=== PATIENT | male | born 1955 | race Caucasian/White ===

== ENCOUNTER → 2016-11-11 | Outpatient (CLI) | payer BC ==
[~2016-11-11] MED LIST: AMBIEN 10MG10 MG PO; AMOXICILLIN 8751 TAB PO; ASPIR-LOW81 MG PO; ASPIR-LOX325 MG PO; ASPIRIN 32325 MG/TAB PO; CARDI-OMEGA1000 MG PO; CIPRO 500MG TA500 MG PO; CRESTOR5 MG PO; DOXYCYCLINE 10100 MG PO; EFFIENT10 MG PO; FISH OIL CONC1000 MG PO; FLAGYL500 MG PO; IMDUR 30MG30 MG/TAB PO; LANTUS100 U/ML SC; LANTUS100 U/ML SQ; LEVAQUIN 750MG750 M1 PO; LOMOTIL 0.025 M1 TAB PO; METOPROLOL SR25 MG PO; NO HOME MEDICATIONS; NORCO 325 MG-51 TAB PO; NOVOLIN R100 U/ML SC; NOVOLOG 100U100 U/M1 SQ; PLAVIX 75MG TAB75 MG PO; PRIL40 PO; PRINIVIL10 MG PO; PROTONIX40 MG PO; SIMVASTATIN20 MG PO; TOPROL XL 25MG25 MG PO; ZITHROMAX 250M250 MG PO; [UNRECOGNIZED DRUG - REMARK]
== END ==
LOC: COL.RAD 11-03 10:30
DX: D44.0 Neoplasm of uncertain behavior of thyroid gland (principal); L97.529 Non-pressure chronic ulcer of other part of left foot with unspecified severity

== ENCOUNTER → 2016-11-11 | Outpatient (CLI) | payer BC | LOC: ZCOL.LAB 16:16 | DX: L97.529 Non-pressure chronic ulcer of other part of left foot with unspecified severity (principal) ==

== ENCOUNTER 2017-06-10 14:57 | Outpatient (RCR) | payer BC | END 2017-07-29 15:03 | disposition home or self-care (01) | LOC: COL.CR 14:57 | DX: Z48.812 Encounter for surgical aftercare following surgery on the circulatory system (principal); Z95.5 Presence of coronary angioplasty implant and graft; I25.10 Atherosclerotic heart disease of native coronary artery without angina pectoris ==

== ENCOUNTER 2017-12-19 18:46 | Emergency (ER) | payer BC ==
[2017-12-19 18:52] VITALS: BP 144/76; TEMP 98.3
[2017-12-19 19:15] LABS: BASO % 0.4 % (0.0-2.0); EOS # 0.1 (0.0-0.7); EOS % 2.1 % (0-4.0); GRAN # 2.8 (1.4-6.5); GRAN % 53.9 % (42.2-75.2); HEMATOCRIT 40.6 % (42.0-52.0); HEMOGLOBIN 13.5 g/dl (13.5-18.0); LYMPH # 1.9 (1.2-3.4); LYMPH % 35.8 % (20.0-51.0); MEAN CELL VOLUME 88 fl (80.0-100.0); MEAN CORPUSCULAR HEMOGLOBIN 29 pg (27.0-31.0); MEAN CORPUSCULAR HGB CONC 33 g/dl (33.0-37.0); MEAN PLATELET VOLUME 8.5 fl (7.4-10.4); MONO # 0.4 (0.1-0.6); MONO % 7.2 % (1.7-9.3); PLATELET COUNT 123 K/mm3 (130-400); RED BLOOD COUNT 4.64 M/mm3 (4.20-5.60); REDCELL DISTRIBUTION WIDTH-CV 12.7 % (11.5-14.5)
[2017-12-19 19:27] LABS: C-REACTIVE PROTEIN 1.6 mg/dL (0.0-0.9); CALCIUM 8.8 mg/dL (8.4-10.2); CREATININE, serum 0.99 mg/dL (0.66-1.25); POTASSIUM 4.3 mmol/L (3.4-5.0)
[2017-12-19 19:36] LABS: ERYTHROCYTE SEDIMENTATION RATE 13 mm/hr (0-30)
[2017-12-19] MEDS ORDERED: DOXYCYCLINE 10100 MG PO (20:01)
[2017-12-19 20:10] VITALS: PULSE 72
== END 2017-12-19 20:10 | disposition home or self-care (01) ==
LOC: COL.ER 18:46
PROVIDERS: Emergency Medicine
DX: E11.621 Type 2 diabetes mellitus with foot ulcer (principal); L97.529 Non-pressure chronic ulcer of other part of left foot with unspecified severity; E11.40 Type 2 diabetes mellitus with diabetic neuropathy, unspecified; F17.210 Nicotine dependence, cigarettes, uncomplicated; Z79.82 Long term (current) use of aspirin; Z79.4 Long term (current) use of insulin; Z98.890 Other specified postprocedural states; Z95.5 Presence of coronary angioplasty implant and graft; Z95.1 Presence of aortocoronary bypass graft

== ENCOUNTER → 2018-04-17 | Outpatient (CLI) | payer BC | LOC: ZCOL.LAB 12:40 | DX: E11.621 Type 2 diabetes mellitus with foot ulcer (principal); L97.529 Non-pressure chronic ulcer of other part of left foot with unspecified severity ==

== ENCOUNTER → 2018-06-07 | Outpatient (CLI) | payer BC | LOC: COL.RAD 09:21 | DX: D49.7 Neoplasm of unspecified behavior of endocrine glands and other parts of nervous system (principal); E04.2 Nontoxic multinodular goiter ==

== ENCOUNTER 2018-06-19 12:01 | Emergency (ER) | payer BC ==
[~2018-06-19] VITALS: Ht 185.4 cm; Wt 108.8 kg
[~2018-06-19 12:01] MED LIST changes: -ASPIRIN 32325 MG/TAB PO; +ASPIRIN 81M81 MG/TA2 PO
[2018-06-19 12:05] VITALS: BP 131/66; TEMP 98.2
[2018-06-19] MEDS ORDERED: CIPRO 500MG TA500 MG PO (12:54)
[2018-06-19] MEDS ORDERED: LASIX 20MG TABL20 MG PO (12:58)
[2018-06-19 13:14] LABS: BASO % 0.3 % (0.0-2.0); EOS # 0.1 (0.0-0.7); EOS % 2.1 % (0-4.0); GRAN # 3.5 (1.4-6.5); GRAN % 60.6 % (42.2-75.2); HEMATOCRIT 38.4 % (42.0-52.0); HEMOGLOBIN 12.5 g/dl (13.5-18.0); LYMPH # 1.7 (1.2-3.4); LYMPH % 29.5 % (20.0-51.0); MEAN CELL VOLUME 88 fl (80.0-100.0); MEAN CORPUSCULAR HEMOGLOBIN 29 pg (27.0-31.0); MEAN CORPUSCULAR HGB CONC 33 g/dl (33.0-37.0); MEAN PLATELET VOLUME 8.2 fl (7.4-10.4); MONO # 0.4 (0.1-0.6); MONO % 6.6 % (1.7-9.3); PLATELET COUNT 150 K/mm3 (130-400); RED BLOOD COUNT 4.39 M/mm3 (4.20-5.60); REDCELL DISTRIBUTION WIDTH-CV 13.2 % (11.5-14.5)
[2018-06-19 13:18] LABS: INR 1.2 (0.8-3.0)
[2018-06-19 13:20] LABS: PARTIAL THROMBOPLASTIN TIME 33.5 SECONDS (26.0-37.0)
[2018-06-19 13:30] LABS: ALBUMIN 3.7 gm/dL (3.5-5.0); BILIRUBIN,TOTAL 0.5 mg/dL (0.0-1.0); C-REACTIVE PROTEIN 4.3 mg/dL (0.0-0.9); CALCIUM 8.8 mg/dL (8.4-10.2); CREATININE, serum 0.88 mg/dL (0.66-1.25); POTASSIUM 4.7 mmol/L (3.4-5.0); TOTAL PROTEIN 8.1 gm/dL (6.4-8.2)
[2018-06-19 14:20] VITALS: PULSE 80
== END 2018-06-19 14:20 | disposition home or self-care (01) ==
LOC: COL.ER 12:01
PROVIDERS: Physician Assistant
DX: R23.3 Spontaneous ecchymoses (principal); I25.10 Atherosclerotic heart disease of native coronary artery without angina pectoris; E11.40 Type 2 diabetes mellitus with diabetic neuropathy, unspecified; F17.210 Nicotine dependence, cigarettes, uncomplicated; Z79.4 Long term (current) use of insulin; Z88.0 Allergy status to penicillin; Z79.82 Long term (current) use of aspirin
CPT/HCPCS: J8540

== ENCOUNTER → 2019-04-05 | Outpatient (CLI) | payer BC ==
[~2019-04-05] MED LIST changes: -LANTUS100 U/ML SQ; +LASIX 20MG TABL20 MG PO; +LEVEMIR100 U/ML SQ
== END ==
LOC: ZCOL.LAB 10:27
DX: E11.621 Type 2 diabetes mellitus with foot ulcer (principal); E11.628 Type 2 diabetes mellitus with other skin complications

== ENCOUNTER 2019-04-16 08:00 | Outpatient (RCR) | payer BC ==
[2019-02-16 15:32] VITALS: BP 126/63; PULSE 83; TEMP 99.6
[2019-02-17 07:56] VITALS: BP 119/65; PULSE 76; TEMP 97.9
[2019-02-18 07:57] VITALS: BP 109/64; PULSE 65; TEMP 97.9
[2019-02-19 09:03] LABS: BASO % 0.4 % (0.0-2.0); EOS # 0.2 (0.0-0.7); EOS % 3.1 % (0-4.0); GRAN # 3.3 (1.4-6.5); GRAN % 60.1 % (42.2-75.2); HEMOGLOBIN 11.4 g/dl (13.5-18.0); LYMPH # 1.6 (1.2-3.4); MEAN CELL VOLUME 90 fl (80.0-100.0); MEAN CORPUSCULAR HEMOGLOBIN 28 pg (27.0-31.0); MEAN CORPUSCULAR HGB CONC 31 g/dl (33.0-37.0); MEAN PLATELET VOLUME 8.6 fl (7.4-10.4); MONO # 0.4 (0.1-0.6); PLATELET COUNT 155 K/mm3 (130-400); REDCELL DISTRIBUTION WIDTH-CV 14.1 % (11.5-14.5)
[2019-02-19 09:06] VITALS: BP 118/72; PULSE 69; TEMP 98.4
[2019-02-19 09:10] LABS: ALBUMIN 3.5 gm/dL (3.5-5.0); BILIRUBIN,TOTAL 0.5 mg/dL (0.0-1.0); C-REACTIVE PROTEIN 4.9 mg/dL (0.0-0.9); CALCIUM 8.8 mg/dL (8.4-10.2); CREATININE, serum 0.83 (0.66-1.25); POTASSIUM 4.8 mmol/L (3.4-5.0)
[2019-02-19 09:28] LABS: HEMATOCRIT 36.7 % (42.0-52.0)
[2019-02-19 09:35] LABS: ERYTHROCYTE SEDIMENTATION RATE 107 mm/hr (0-30)
[2019-02-20 08:30] VITALS: BP 115/55; PULSE 64; TEMP 97.4
[2019-02-21 08:01] VITALS: BP 106/64; PULSE 66; TEMP 98.5
[2019-02-22 07:57] VITALS: BP 110/57; PULSE 79; TEMP 97.7
[2019-02-23 08:13] VITALS: BP 100/58; PULSE 82; TEMP 98
[2019-02-24 08:25] VITALS: BP 132/63; PULSE 75; TEMP 97.6
[2019-02-25 09:14] VITALS: BP 127/41; PULSE 65; PULSE 69; TEMP 97.8; TEMP 98
[2019-02-26 08:29] VITALS: BP 134/106; PULSE 69; TEMP 97.8
[2019-02-26 08:38] LABS: BASO % 0.2 % (0.0-2.0); EOS # 0.1 (0.0-0.7); EOS % 3.4 % (0-4.0); GRAN # 2.2 (1.4-6.5); GRAN % 53.2 % (42.2-75.2); HEMOGLOBIN 11.2 g/dl (13.5-18.0); LYMPH # 1.5 (1.2-3.4); LYMPH % 36.1 % (20.0-51.0); MEAN CELL VOLUME 89 fl (80.0-100.0); MEAN CORPUSCULAR HEMOGLOBIN 28 pg (27.0-31.0); MEAN CORPUSCULAR HGB CONC 31 g/dl (33.0-37.0); MEAN PLATELET VOLUME 8.8 fl (7.4-10.4); MONO # 0.3 (0.1-0.6); MONO % 6.1 % (1.7-9.3); PLATELET COUNT 140 K/mm3 (130-400); RED BLOOD COUNT 4.03 M/mm3 (4.20-5.60)
[2019-02-26 08:50] LABS: ALBUMIN 3.6 gm/dL (3.5-5.0); BILIRUBIN,TOTAL 0.3 mg/dL (0.0-1.0); C-REACTIVE PROTEIN 1.8 mg/dL (0.0-0.9); CALCIUM 8.9 mg/dL (8.4-10.2); CREATININE, serum 0.81 (0.66-1.25); POTASSIUM 4.2 mmol/L (3.4-5.0); TOTAL PROTEIN 7.9 gm/dL (6.4-8.2)
[2019-02-26 09:13] LABS: ERYTHROCYTE SEDIMENTATION RATE 48 mm/hr (0-30)
[2019-02-27 08:16] VITALS: BP 130/62; PULSE 69; TEMP 97.7
[2019-02-28 08:06] VITALS: BP 124/57; PULSE 66; TEMP 97.8
[2019-03-01 08:11] VITALS: BP 109/58; PULSE 65; TEMP 98
[2019-03-02 08:07] VITALS: BP 118/57; PULSE 65; TEMP 97.3
[2019-03-03 07:57] VITALS: BP 128/58; PULSE 64; TEMP 97.8
[2019-03-04 07:57] VITALS: BP 107/57; PULSE 68; TEMP 97.6
[2019-03-05 07:48] VITALS: BP 151/61; PULSE 59; TEMP 97.7
--- NOTE | 2019-03-05 08:00 | NUR ---
PICC intact right upper arm. With sterile technique right upper arm PICC dressing change done with insertion site cleansed with ChloraPrep 1, chlorhexidine impregnated disc applied, skin prep, StatLock, and Tegaderm applied. No signs or symptoms of IV complications noted. No concerns voiced. We'll continue to monitor.
[2019-03-05 08:04] LABS: BASO % 0.2 % (0.0-2.0); EOS # 0.1 (0.0-0.7); EOS % 2.2 % (0-4.0); GRAN # 2.8 (1.4-6.5); GRAN % 57.5 % (42.2-75.2); HEMOGLOBIN 11.7 g/dl (13.5-18.0); LYMPH # 1.6 (1.2-3.4); LYMPH % 33.4 % (20.0-51.0); MEAN CELL VOLUME 88 fl (80.0-100.0); MEAN CORPUSCULAR HEMOGLOBIN 28 pg (27.0-31.0); MEAN CORPUSCULAR HGB CONC 32 g/dl (33.0-37.0); MEAN PLATELET VOLUME 8.6 fl (7.4-10.4); MONO # 0.3 (0.1-0.6); MONO % 6.1 % (1.7-9.3); PLATELET COUNT 119 K/mm3 (130-400); RED BLOOD COUNT 4.15 M/mm3 (4.20-5.60); REDCELL DISTRIBUTION WIDTH-CV 14.2 % (11.5-14.5)
[2019-03-05 08:11] LABS: HEMATOCRIT 36.7 % (42.0-52.0)
[2019-03-05 08:14] LABS: ALANINE AMINOTRANSFERASE < 6 U/L (21-72); ALBUMIN 3.6 gm/dL (3.5-5.0); ALKALINE PHOSPHATASE 76 U/L (50-136); ANION GAP 11 mmol/L (7-16); AST,SGOT 22 U/L (15-37); BILIRUBIN,TOTAL 0.5 mg/dL (0.0-1.0); BLOOD UREA NITROGEN 15 mg/dL (9-20); C-REACTIVE PROTEIN 1.5 mg/dL (0.0-0.9); CALCIUM 9.2 mg/dL (8.4-10.2); CARBON DIOXIDE 27 mmol/L (22-30); CHLORIDE 104 mmol/L (98-107); CREATINE KINASE 70 U/L (55-170); CREATININE, serum 0.82 (0.66-1.25); GLUCOSE 158 mg/dL (74-106); POTASSIUM 4.4 mmol/L (3.4-5.0); SODIUM 142 mmol/L (137-145); TOTAL PROTEIN 7.9 gm/dL (6.4-8.2)
[2019-03-05 08:29] LABS: ERYTHROCYTE SEDIMENTATION RATE 48 mm/hr (0-30)
[2019-03-06 08:18] VITALS: BP 116/67; PULSE 62; TEMP 98
[2019-03-07 09:03] VITALS: BP 135/86; PULSE 90; TEMP 98
[2019-03-08 08:00] VITALS: BP 112/61; PULSE 62; TEMP 98
[2019-03-09 07:57] VITALS: BP 107/61; PULSE 66; TEMP 97.7
[2019-03-10 07:58] VITALS: BP 118/51; PULSE 74; TEMP 97.2
[2019-03-11 08:07] VITALS: BP 122/58; PULSE 64; TEMP 97.5
[2019-03-12 08:07] VITALS: BP 119/65; PULSE 58; TEMP 97.4
[2019-03-12 08:07] LABS: HEMATOCRIT 39.1 % (42.0-52.0); HEMOGLOBIN 12.3 g/dl (13.5-18.0); MEAN CELL VOLUME 89 fl (80.0-100.0); MEAN CORPUSCULAR HEMOGLOBIN 28 pg (27.0-31.0); MEAN CORPUSCULAR HGB CONC 32 g/dl (33.0-37.0); PLATELET COUNT 101 K/mm3 (130-400); RED BLOOD COUNT 4.42 M/mm3 (4.20-5.60); REDCELL DISTRIBUTION WIDTH-CV 14.5 % (11.5-14.5)
[2019-03-12 08:49] LABS: BILIRUBIN,TOTAL 0.7 mg/dL (0.0-1.0); C-REACTIVE PROTEIN 0.6 mg/dL (0.0-0.9); CALCIUM 9.2 mg/dL (8.4-10.2); CREATININE, serum 0.8 (0.66-1.25); POTASSIUM 4.5 mmol/L (3.4-5.0); TOTAL PROTEIN 8.1 gm/dL (6.4-8.2)
[2019-03-12 09:12] LABS: ERYTHROCYTE SEDIMENTATION RATE 42 mm/hr (0-30)
[2019-03-12 09:24] LABS: BASOPHIL 1 % (0-2); EOSINOPHIL 2 % (0-4); LYMPHOCYTE 48 % (20.0-51.0); NEUTROPHILS 45 % (42.0-75.2); PLATELET ESTIMATE DECREASED (NORMAL)
[2019-03-13 08:21] VITALS: BP 129/63; PULSE 58; TEMP 97.5
[2019-03-14 08:08] VITALS: BP 115/57; PULSE 64; TEMP 97.7
[2019-03-15 08:03] VITALS: BP 126/62; PULSE 75; TEMP 97.6
[2019-03-16 08:09] VITALS: BP 114/49; PULSE 73; TEMP 98
[2019-03-17 08:03] VITALS: BP 112/58; PULSE 71; TEMP 97.6
[2019-03-18 08:03] VITALS: BP 128/62; PULSE 73; TEMP 97.9
[2019-03-19 08:22] VITALS: BP 113/56; PULSE 65; TEMP 98.1
--- NOTE | 2019-03-19 08:35 | NUR ---
PICC intact right upper arm. With sterile technique right upper arm PICC dressing change done with insertion site cleansed with ChloraPrep 1, chlorhexidine impregnated disc applied, skin prep, StatLock, and Tegaderm applied. No signs or symptoms IV complications noted. No concerns voiced. Arm wrapped with Silas to protect catheter.
[2019-03-19 08:40] LABS: BASO % 0.4 % (0.0-2.0); EOS # 0.1 (0.0-0.7); EOS % 2.9 % (0-4.0); GRAN # 2.5 (1.4-6.5); GRAN % 54.7 % (42.2-75.2); HEMATOCRIT 40.2 % (42.0-52.0); HEMOGLOBIN 12.7 g/dl (13.5-18.0); LYMPH # 1.6 (1.2-3.4); LYMPH % 35.1 % (20.0-51.0); MEAN CELL VOLUME 89 fl (80.0-100.0); MEAN CORPUSCULAR HEMOGLOBIN 28 pg (27.0-31.0); MEAN CORPUSCULAR HGB CONC 32 g/dl (33.0-37.0); MEAN PLATELET VOLUME 9.8 fl (7.4-10.4); MONO # 0.3 (0.1-0.6); MONO % 6.7 % (1.7-9.3); PLATELET COUNT 99 K/mm3 (130-400); RED BLOOD COUNT 4.53 M/mm3 (4.20-5.60); REDCELL DISTRIBUTION WIDTH-CV 15.1 % (11.5-14.5)
[2019-03-19 08:49] LABS: ALANINE AMINOTRANSFERASE 13 U/L (21-72); ALBUMIN 4.1 gm/dL (3.5-5.0); ALKALINE PHOSPHATASE 78 U/L (50-136); ANION GAP 11 mmol/L (7-16); AST,SGOT 30 U/L (15-37); BILIRUBIN,TOTAL 0.6 mg/dL (0.0-1.0); BLOOD UREA NITROGEN 17 mg/dL (9-20); CALCIUM 9.2 mg/dL (8.4-10.2); CARBON DIOXIDE 26 mmol/L (22-30); CHLORIDE 104 mmol/L (98-107); CREATINE KINASE 86 U/L (55-170); CREATININE, serum 0.87 (0.66-1.25); GLUCOSE 172 mg/dL (74-106); POTASSIUM 4.3 mmol/L (3.4-5.0); SODIUM 141 mmol/L (137-145); TOTAL PROTEIN 8.2 gm/dL (6.4-8.2)
[2019-03-19 09:05] LABS: ERYTHROCYTE SEDIMENTATION RATE 18 mm/hr (0-30)
[2019-03-19 09:31] LABS: C-REACTIVE PROTEIN < 0.5 mg/dL (0.0-0.9)
[2019-03-20 08:09] VITALS: BP 125/61; PULSE 64; TEMP 97.8
--- NOTE | 2019-03-20 08:15 | NUR ---
PICC intact right upper arm. Primary care nurse reported no blood return from PICC. Flushed both ports with 60 mL normal saline without difficulty or resistance. Had patient cough and moved arm with flushing of PICC. Still no blood return noted. Chest x-ray done and tip location noted in lower SVC. Medications will be given today. We will obtain an order for Activase and if needed will instill in a.m. if needed. No other concerns voiced. We'll continue to monitor.
[2019-03-21 08:07] VITALS: BP 118/64; PULSE 64; TEMP 98
[2019-03-22 07:55] VITALS: BP 121/67; PULSE 58; TEMP 97.4
[2019-03-23 08:02] VITALS: BP 138/70; PULSE 74; TEMP 98
[2019-03-24 08:00] VITALS: BP 130/70; PULSE 70; TEMP 98.1
[2019-03-25 08:17] VITALS: BP 132/70; PULSE 67; TEMP 97.5
--- NOTE | 2019-03-26 08:00 | NUR ---
PICC intact right upper arm with sterile dressing change done with insertion site cleansed with chloraprep x 1, chlorhexidine impregnate disk applied, skin prep, stat lock, and tegaderm applied. RN reports cath wendy will be given. unable to obtain blood return. no other signs or symptoms of IV complications noted. no concerns voiced. re-wrapped with clifford to protect catheter.
[2019-03-26 09:08] VITALS: BP 120/64; PULSE 91; TEMP 97.5
--- NOTE | 2019-03-26 10:48 | NUR ---
Red top lumen no blood back. Purple lumen 2 cc blood back. Will left Cath Flow sit for an additional 90 minutes.
--- NOTE | 2019-03-26 11:57 | NUR ---
Blood return from both lumens. Flushed and caps changed. Lab to draw peripherally.
[2019-03-26 12:37] LABS: BASO % 0.2 % (0.0-2.0); EOS # 0.1 (0.0-0.7); EOS % 3.5 % (0-4.0); GRAN % 48.9 % (42.2-75.2); HEMOGLOBIN 12.6 g/dl (13.5-18.0); LYMPH # 1.5 (1.2-3.4); LYMPH % 37.3 % (20.0-51.0); MEAN CELL VOLUME 87 fl (80.0-100.0); MEAN CORPUSCULAR HEMOGLOBIN 28 pg (27.0-31.0); MEAN CORPUSCULAR HGB CONC 32 g/dl (33.0-37.0); MEAN PLATELET VOLUME 9.3 fl (7.4-10.4); MONO # 0.4 (0.1-0.6); MONO % 9.6 % (1.7-9.3); PLATELET COUNT 84 K/mm3 (130-400); RED BLOOD COUNT 4.46 M/mm3 (4.20-5.60); REDCELL DISTRIBUTION WIDTH-CV 15.1 % (11.5-14.5)
[2019-03-26 12:53] LABS: ALANINE AMINOTRANSFERASE 17 U/L (21-72); ALKALINE PHOSPHATASE 67 U/L (50-136); ANION GAP 9 mmol/L (7-16); AST,SGOT 33 U/L (15-37); BILIRUBIN,TOTAL 0.7 mg/dL (0.0-1.0); BLOOD UREA NITROGEN 18 mg/dL (9-20); CALCIUM 9.3 mg/dL (8.4-10.2); CARBON DIOXIDE 27 mmol/L (22-30); CHLORIDE 104 mmol/L (98-107); CREATINE KINASE 109 U/L (55-170); CREATININE, serum 0.83 (0.66-1.25); GLUCOSE 124 mg/dL (74-106); POTASSIUM 4.5 mmol/L (3.4-5.0); SODIUM 140 mmol/L (137-145); TOTAL PROTEIN 7.9 gm/dL (6.4-8.2)
[2019-03-26 12:56] LABS: C-REACTIVE PROTEIN < 0.5 mg/dL (0.0-0.9)
[2019-03-26 13:05] LABS: ERYTHROCYTE SEDIMENTATION RATE 14 mm/hr (0-30)
[2019-03-27 09:13] VITALS: BP 119/58; PULSE 62; TEMP 97.4
[2019-03-28 08:30] VITALS: BP 89/69; PULSE 65; TEMP 98
[2019-03-29 08:00] VITALS: BP 116/62; PULSE 70; TEMP 98.6
[2019-03-30 11:42] VITALS: BP 116/60; PULSE 72; TEMP 97.4
[2019-03-31 08:52] VITALS: BP 130/47; PULSE 69; TEMP 97.5
[2019-04-01 08:10] VITALS: BP 124/67; PULSE 66; TEMP 97.7
[2019-04-02 07:57] VITALS: BP 115/62; PULSE 69; TEMP 98.1
--- NOTE | 2019-04-02 08:20 | NUR ---
PICC intact right upper arm with sterile dressing change done with insertion site cleansed with chloraprep x 1, chlorhexidine impregnated disk applied, skin prep, stat lock, and tegaderm applied. no signs or sypmptoms of IV complications noted. no concerns voiced. re-wrapped with clifford to protect catheter. to continue with cares in EU.
[2019-04-02 08:28] LABS: BASO % 0.5 % (0.0-2.0); EOS # 0.2 (0.0-0.7); EOS % 3.4 % (0-4.0); GRAN # 2.3 (1.4-6.5); GRAN % 51.3 % (42.2-75.2); HEMATOCRIT 39.1 % (42.0-52.0); HEMOGLOBIN 12.4 g/dl (13.5-18.0); LYMPH # 1.6 (1.2-3.4); LYMPH % 36.3 % (20.0-51.0); MEAN CELL VOLUME 88 fl (80.0-100.0); MEAN CORPUSCULAR HEMOGLOBIN 28 pg (27.0-31.0); MEAN CORPUSCULAR HGB CONC 32 g/dl (33.0-37.0); MEAN PLATELET VOLUME 9.6 fl (7.4-10.4); MONO # 0.4 (0.1-0.6); PLATELET COUNT 97 K/mm3 (130-400); RED BLOOD COUNT 4.43 M/mm3 (4.20-5.60); REDCELL DISTRIBUTION WIDTH-CV 15.1 % (11.5-14.5)
[2019-04-02 08:39] LABS: BILIRUBIN,TOTAL 0.6 mg/dL (0.0-1.0); C-REACTIVE PROTEIN 0.8 mg/dL (0.0-0.9); CALCIUM 9.5 mg/dL (8.4-10.2); CREATININE, serum 0.94 (0.66-1.25); POTASSIUM 4.5 mmol/L (3.4-5.0); TOTAL PROTEIN 7.8 gm/dL (6.4-8.2)
[2019-04-02 08:56] LABS: ERYTHROCYTE SEDIMENTATION RATE 15 mm/hr (0-30)
[2019-04-03 08:25] VITALS: BP 114/63; PULSE 65; TEMP 97.4
[2019-04-04 07:59] VITALS: BP 108/75; PULSE 64; TEMP 97.3
[2019-04-05 08:21] VITALS: BP 130/64; PULSE 63; TEMP 97.3
[2019-04-06 08:09] VITALS: BP 137/61; PULSE 86; TEMP 97.6
[2019-04-07 08:14] VITALS: BP 131/71; PULSE 63; TEMP 97.3
[2019-04-08 08:23] VITALS: BP 122/58; PULSE 67; TEMP 97.7
--- NOTE | 2019-04-09 08:00 | NUR ---
patient intact right upper arm. With sterile technique right upper arm PICC dressing change done with insertion site cleansed with ChloraPrep 1, chlorhexidine impregnated disc applied, skin prep, StatLock, and Tegaderm applied. No signs or symptoms of IV complications noted. No concerns voiced. Arm wrapped with Silas to protect catheter.
[2019-04-09 08:26] LABS: BASO % 0.5 % (0.0-2.0); EOS # 0.1 (0.0-0.7); EOS % 3.1 % (0-4.0); GRAN # 2.3 (1.4-6.5); GRAN % 54.2 % (42.2-75.2); HEMOGLOBIN 11.9 g/dl (13.5-18.0); LYMPH # 1.5 (1.2-3.4); LYMPH % 34.8 % (20.0-51.0); MEAN CELL VOLUME 88 fl (80.0-100.0); MEAN CORPUSCULAR HEMOGLOBIN 29 pg (27.0-31.0); MEAN CORPUSCULAR HGB CONC 33 g/dl (33.0-37.0); MEAN PLATELET VOLUME 9.5 fl (7.4-10.4); MONO # 0.3 (0.1-0.6); MONO % 6.9 % (1.7-9.3); PLATELET COUNT 84 K/mm3 (130-400); RED BLOOD COUNT 4.13 M/mm3 (4.20-5.60)
[2019-04-09 08:29] VITALS: BP 116/61; PULSE 64; TEMP 97.7
[2019-04-09 08:30] LABS: HEMATOCRIT 36.3 % (42.0-52.0)
[2019-04-09 08:39] LABS: ALANINE AMINOTRANSFERASE 15 U/L (21-72); ALBUMIN 3.8 gm/dL (3.5-5.0); ALKALINE PHOSPHATASE 64 U/L (50-136); ANION GAP 10 mmol/L (7-16); AST,SGOT 26 U/L (15-37); BILIRUBIN,TOTAL 0.5 mg/dL (0.0-1.0); BLOOD UREA NITROGEN 19 mg/dL (9-20); CALCIUM 8.8 mg/dL (8.4-10.2); CARBON DIOXIDE 24 mmol/L (22-30); CHLORIDE 105 mmol/L (98-107); CREATINE KINASE 114 U/L (55-170); CREATININE, serum 0.75 (0.66-1.25); GLUCOSE 202 mg/dL (74-106); SODIUM 140 mmol/L (137-145); TOTAL PROTEIN 7.3 gm/dL (6.4-8.2)
[2019-04-09 08:40] LABS: C-REACTIVE PROTEIN < 0.5 mg/dL (0.0-0.9)
[2019-04-09 08:50] LABS: ERYTHROCYTE SEDIMENTATION RATE 6 mm/hr (0-30)
[2019-04-10 08:07] VITALS: BP 137/60; PULSE 70; TEMP 97.8
[2019-04-11 08:00] VITALS: BP 120/60; PULSE 71; TEMP 97.4
[2019-04-12 08:12] VITALS: BP 122/67; PULSE 65; TEMP 97.6
[2019-04-13 08:14] VITALS: BP 124/74; PULSE 67; TEMP 97.4
[2019-04-14 08:11] VITALS: BP 109/63; PULSE 64; TEMP 97.8
[2019-04-15 08:43] VITALS: BP 128/59; PULSE 64
[~2019-04-16] VITALS: Ht 185.4 cm; Wt 114.5 kg
[2019-04-16 08:22] VITALS: BP 133/64; PULSE 65; TEMP 97.5
[2019-04-16 08:23] LABS: BASO % 0.5 % (0.0-2.0); EOS # 0.1 (0.0-0.7); EOS % 3.1 % (0-4.0); GRAN # 2.2 (1.4-6.5); GRAN % 51.8 % (42.2-75.2); HEMATOCRIT 39.4 % (42.0-52.0); HEMOGLOBIN 12.7 g/dl (13.5-18.0); LYMPH # 1.5 (1.2-3.4); LYMPH % 37.1 % (20.0-51.0); MEAN CELL VOLUME 88 fl (80.0-100.0); MEAN CORPUSCULAR HEMOGLOBIN 28 pg (27.0-31.0); MEAN CORPUSCULAR HGB CONC 32 g/dl (33.0-37.0); MEAN PLATELET VOLUME 9.3 fl (7.4-10.4); MONO # 0.3 (0.1-0.6); PLATELET COUNT 73 K/mm3 (130-400); RED BLOOD COUNT 4.47 M/mm3 (4.20-5.60); REDCELL DISTRIBUTION WIDTH-CV 14.7 % (11.5-14.5)
[2019-04-16 08:43] LABS: ALBUMIN 4.1 gm/dL (3.5-5.0); BILIRUBIN,TOTAL 0.5 mg/dL (0.0-1.0); C-REACTIVE PROTEIN 0.7 mg/dL (0.0-0.9); CALCIUM 9.1 mg/dL (8.4-10.2); CREATININE, serum 0.78 (0.66-1.25); POTASSIUM 4.1 mmol/L (3.4-5.0); TOTAL PROTEIN 7.8 gm/dL (6.4-8.2)
[2019-04-16 08:57] LABS: ERYTHROCYTE SEDIMENTATION RATE 18 mm/hr (0-30)
== END 2019-04-16 09:31 | disposition home or self-care (01) ==
LOC: EUO 08:00
PROVIDERS: Internal Medicine Infectious Disease; Nurse Practitioner
DX: Z45.2 Encounter for adjustment and management of vascular access device (principal); E11.628 Type 2 diabetes mellitus with other skin complications; Z79.899 Other long term (current) drug therapy
CPT/HCPCS: C1751; C1892; J0878; J1335; J2997

== ENCOUNTER → 2019-07-10 | Outpatient (CLI) | payer BC | LOC: ZCOL.LAB 10:57 | DX: E11.621 Type 2 diabetes mellitus with foot ulcer (principal) ==

== ENCOUNTER 2020-03-01 09:04 | Emergency (ER) | payer BC ==
[~2020-03-01] VITALS: Ht 185.4 cm; Wt 115.9 kg
[2020-03-01 09:07] VITALS: BP 153/81; TEMP 97.9
[2020-03-01] MEDS ORDERED: MASON NATURAL1200 MG PO (09:17)
[2020-03-01] MEDS ORDERED: DOXYCYCLINE HY100 MG PO (09:33)
[2020-03-01 10:01] VITALS: PULSE 71
== END 2020-03-01 10:01 | disposition home or self-care (01) ==
LOC: COL.ER 09:04
DX: S91.302A Unspecified open wound, left foot, initial encounter (principal); E11.621 Type 2 diabetes mellitus with foot ulcer; L97.529 Non-pressure chronic ulcer of other part of left foot with unspecified severity; E11.42 Type 2 diabetes mellitus with diabetic polyneuropathy; L84 Corns and callosities; G47.30 Sleep apnea, unspecified; I25.10 Atherosclerotic heart disease of native coronary artery without angina pectoris; Z79.4 Long term (current) use of insulin; Z79.82 Long term (current) use of aspirin; Z87.891 Personal history of nicotine dependence; Z95.5 Presence of coronary angioplasty implant and graft; Z88.2 Allergy status to sulfonamides; X50.1XXA Overexertion from prolonged static or awkward postures, initial encounter; Y92.009 Unspecified place in unspecified non-institutional (private) residence as the place of occurrence of the external cause

== ENCOUNTER 2021-01-09 05:54 | Day surgery (SDC) | payer MEDICARE, BC ==
[~2021-01-09] VITALS: Ht 185.4 cm; Wt 116.3 kg
[~2021-01-09 05:54] MED LIST changes: +DOXYCYCLINE HY100 MG PO; +MASON NATURAL1200 MG PO
[2021-01-09] MEDS ORDERED: CRESTOR5 MG PO (06:17)
[2021-01-09 06:25] VITALS: BP 134/78; PULSE 68; TEMP 97.8
[2021-01-09 07:35] VITALS: BP 117/65; PULSE 61; TEMP 97.7
--- NOTE | 2021-01-09 07:35 | NUR ---
PATIENT TRANSPORTED PER CART FROM GI SUITE BY RAISA PARKER TO [place] [facility]. PATIENT AMBULATED FROM CART TO CHAIR WITH 2 ASSIST. SLOW STEADY GAIT. MONITORS APPLIED. VSS. PATIENT DENIES PAIN AND NAUSEA. WARM BLANKET PROVIDED.
[2021-01-09 07:45] VITALS: BP 101/69; PULSE 73
--- NOTE | 2021-01-09 07:47 | NUR ---
VSS ON ROOM AIR. PATIENT EATS TOAST AND DRINK ORANGE JUICE WITHOUT PROBLEMS. DR LEON IN ROOM AND SPEAKS WITH PATIENT AND FAMILY. PATIENT'S SISTER AND IN ROOM. QUESTIONS ANSWERED.
[2021-01-09 08:00] VITALS: BP 103/65; PULSE 64
--- NOTE | 2021-01-09 08:05 | NUR ---
VSS ON ROOM AIR. PATIENT TALKING WITH FAMILY. PATIENT DENIES NAUSEA AND PAIN.
[2021-01-09 08:15] VITALS: BP 120/60; PULSE 66
--- NOTE | 2021-01-09 08:20 | NUR ---
VSS ON ROOM AIR. PATIENT DENIES DISCOMFORT AND NAUSEA. IV DC'D WITH CATHETER TIP INTACT. PRESSURE AND BANDAGE APPLIED. DISCHARGE INSTRUCTIONS GIVEN VERBAL AND DISCHARGE PACKET PROVIDED. QUESTIONS ANSWERED AND PATIENT VERBALIZED UNDERSTANDING. PATIENT CHANGES INTO STREET CLOTHES 0830 PATIENT DISCHARGED PER WHEEL CHAIR ACCOMPANIED BY AMB RN [id number].
== END 2021-01-09 08:30 | disposition home or self-care (01) ==
LOC: SDCO 05:54
DX: Z12.11 Encounter for screening for malignant neoplasm of colon (principal); D12.5 Benign neoplasm of sigmoid colon; D12.2 Benign neoplasm of ascending colon; K57.30 Diverticulosis of large intestine without perforation or abscess without bleeding; I25.10 Atherosclerotic heart disease of native coronary artery without angina pectoris; I10 Essential (primary) hypertension; E11.9 Type 2 diabetes mellitus without complications; E78.5 Hyperlipidemia, unspecified; G47.00 Insomnia, unspecified; D69.6 Thrombocytopenia, unspecified; K76.0 Fatty (change of) liver, not elsewhere classified; Z79.4 Long term (current) use of insulin; G47.33 Obstructive sleep apnea (adult) (pediatric); E66.9 Obesity, unspecified; Z99.89 Dependence on other enabling machines and devices; Z95.1 Presence of aortocoronary bypass graft; Z87.891 Personal history of nicotine dependence; Z79.899 Other long term (current) drug therapy; Z79.82 Long term (current) use of aspirin
CPT/HCPCS: J2704; J7030

== ENCOUNTER → 2021-09-21 | Outpatient (RCR) | payer MEDICARE, BC ==
[~2021-09-21] MED LIST changes: +GLUCOPHAGE XR500 M1 PO
== END | disposition home or self-care (01) ==
LOC: COL.CR
DX: I21.4 Non-ST elevation (NSTEMI) myocardial infarction (principal)

== ENCOUNTER → 2021-10-19 | Outpatient (RCR) | payer MEDICARE, BC | END | disposition home or self-care (01) | LOC: COL.CR | DX: I25.2 Old myocardial infarction (principal) ==

== ENCOUNTER 2021-11-18 11:20 | Outpatient (RCR) | payer MEDICARE, BC ==
[~2021-11-18 11:20] MED LIST changes: +CRESTOR20 MG PO; +INSULIN AS100 UNIT/3; +PRINIVIL20 MG PO; -TOPROL XL 25MG25 MG PO; +TOPROL XL 50MG50 MG PO
== END 2021-11-19 | disposition home or self-care (01) ==
LOC: COL.CR
DX: I25.2 Old myocardial infarction (principal)

== ENCOUNTER 2021-12-14 16:57 | Outpatient (RCR) | payer MEDICARE, BC | END 2021-12-16 15:09 | disposition home or self-care (01) | LOC: COL.CR 16:57 | DX: I25.2 Old myocardial infarction (principal) ==

== ENCOUNTER 2022-12-11 13:20 | Emergency (ER) | payer MEDICARE, BC ==
[~2022-12-11] VITALS: Ht 175.3 cm; Wt 111.4 kg
[2022-12-11 13:31] VITALS: BP 151/78; TEMP 98.3
[2022-12-11 15:00] LABS: BASO % 0.2 % (0.0-2.0); EOS % 0.3 % (0.0-4.0); GRAN # 4.7 K/mm3 (1.4-6.5); GRAN % 77.7 % (42.2-75.2); HEMATOCRIT 38.6 % (42.0-52.0); LYMPH # 0.6 K/mm3 (1.2-3.4); LYMPH % 10.4 % (20.0-51.0); MEAN CELL VOLUME 87 fl (80.0-100.0); MEAN CORPUSCULAR HEMOGLOBIN 29 pg (27-31); MEAN CORPUSCULAR HGB CONC 34 g/dl (33.0-37.0); MEAN PLATELET VOLUME 8.5 fl (7.4-10.4); MONO # 0.7 K/mm3 (0.1-0.6); MONO % 11.1 % (1.7-9.3); PLATELET COUNT 139 K/mm3 (130-400); RED BLOOD COUNT 4.44 M/mm3 (4.20-5.60); REDCELL DISTRIBUTION WIDTH-CV 12.9 % (11.5-14.5)
[2022-12-11 16:03] LABS: ALBUMIN 3.3 gm/dL (3.4-4.8); BILIRUBIN,TOTAL 1.2 mg/dL (0.2-1.2); CALCIUM 9.4 mg/dL (8.4-10.2); CREATININE, serum 1.2 mg/dL (0.72-1.25); POTASSIUM 4.6 mmol/L (3.5-4.5); TOTAL PROTEIN 7.7 gm/dL (6.2-8.1)
[2022-12-11 16:20] VITALS: PULSE 78
== END 2022-12-11 16:21 | disposition home or self-care (01) ==
LOC: COL.ER 13:20
PROVIDERS: Physician Assistant
DX: B34.9 Viral infection, unspecified (principal); R68.83 Chills (without fever); R11.0 Nausea; D64.9 Anemia, unspecified; E11.9 Type 2 diabetes mellitus without complications; E66.9 Obesity, unspecified; Z68.36 Body mass index [BMI] 36.0-36.9, adult; Z20.822 Contact with and (suspected) exposure to COVID-19

== ENCOUNTER 2023-12-19 12:03 | Outpatient (RCR) | payer MEDICARE, BC ==
[~2023-12-19 12:03] MED LIST changes: +BASAGLAR T100 UNIT/1 SQ; +GLUCOPHAGE500 MG/TAB PO; +PREDNISONE50 MG PO; +ZITHROMAX Z PA250 MG PO
== END 2023-12-20 | disposition home or self-care (01) ==
LOC: COL.CR
DX: I25.2 Old myocardial infarction (principal)

== ENCOUNTER 2024-05-07 08:45 | Day surgery (SDC) | payer MEDICARE, BC ==
[~2024-05-07] VITALS: Ht 182.9 cm; Wt 112.7 kg
[~2024-05-07 08:45] MED LIST changes: +LR 1,000 ML IV SCH; +Ondansetron 4 MG/2 ML VIAL IV PRN
[2024-05-07] MEDS ORDERED: fentaNYL 50 MCG/ML 2 ML VIAL ONE (10:35)
[2024-05-07] MEDS ORDERED: Lidocaine PF 2% (20 MG/ML) 5 ML VIAL ONE (10:35)
[2024-05-07 10:55] VITALS: BP 116/54; PULSE 60
[2024-05-07 11:10] VITALS: BP 117/60; PULSE 60
[2024-05-07 11:25] VITALS: BP 119/63; PULSE 54
[2024-05-07 13:56] VITALS: BP 137/73; PULSE 65; TEMP 97.5
--- NOTE | 2024-05-07 14:25 | NUR ---
1055 PATIENT RETUR[place] TO [facility] [place]. PT AWAKE AND ALERT. RESPIRATIONS UNLABORED. AMBULATED TO RECLINER CHAIR WITH 2:1 SBA. PT DENIES NAUSEA OR ABDOMINAL PAIN. HOOKED UP TO MONITOR AND VS OBTAINED. CALL LIGHT AT SIDE AND CHARLES (NEIGHBOR) PRESENT. 1100 PATIENT TOLERATING JELLO AND TEA WITHOUT NAUSEA OR DIFFICULTY SWALLOWING. 1105 IN ROOM SPEAKING WITH PATIENT. 1115 D/C INSTRUCTIONS REVIEWED WITH PATIENT. PT VERBALIZED UNDERSTANDING AND A COPY OF INSTRUCTIONS PROVIDED IN D/C FOLDER. 1125 PATIENT DRESSES SELF. 1135 PATIENT DISCHARGED FROM UNIT VIA W/C TO A PERSONAL VEHICLE. PT LEFT HOSPITAL IN STABLE CONDITION.
== END 2024-05-07 11:35 | disposition home or self-care (01) ==
LOC: SDCO 08:45
DX: I85.01 Esophageal varices with bleeding (principal); K31.7 Polyp of stomach and duodenum; G47.33 Obstructive sleep apnea (adult) (pediatric); E66.01 Morbid (severe) obesity due to excess calories; E11.9 Type 2 diabetes mellitus without complications; I25.2 Old myocardial infarction; Z85.850 Personal history of malignant neoplasm of thyroid; Z47.33 Aftercare following explantation of knee joint prosthesis; Z87.891 Personal history of nicotine dependence; Z95.5 Presence of coronary angioplasty implant and graft
CPT/HCPCS: J2704; J3010; J7120